=== PATIENT | female | born 1980 | race Caucasian/White ===

== ENCOUNTER 2018-05-12 10:16 | Emergency (ER) | payer OTHER ==
[2018-05-12] MEDS: IBUPROFEN 600 MG TAB PO (11:06)
== END 2018-05-12 13:35 | disposition home or self-care (01) ==
LOC: FTE 10:16
DX: S22.32XA Fracture of one rib, left side, initial encounter for closed fracture (principal); R40.2412 Glasgow coma scale score 13-15, at arrival to emergency department; W18.30XA Fall on same level, unspecified, initial encounter; Y92.89 Other specified places as the place of occurrence of the external cause
CPT/HCPCS: 71100; 76705; 81025; 99284-25